=== PATIENT | female | born 2005 | race Caucasian/White ===

== ENCOUNTER 2025-08-24 10:41 | Emergency (ER) | payer OTHER, SELFPAY ==
--- NOTE | ~2025-08-24 | XR_ITS ---
CLINICAL HISTORY: cough 2 view chest x-ray Comparison: None provided Findings: No consolidation or effusion. Normal size heart. No acute fracture. IMPRESSION: 1. No acute findings. This document has been electronically signed by: Xander Hummel MD on 08/24/2025 12:24:14
[2025-08-24 11:08] VITALS: BP 95/58; PULSE 82; RESP 18; TEMP 36.4; O2SAT 98; BMI 32.0
[2025-08-24 11:40] VITALS: BMI 21.7
[2025-08-24 11:43] LABS: MANUAL DIFF FLAG NO
[2025-08-24 11:50] LABS: Hematocrit 39.4 % (37.0-47.0); Hemoglobin 13.4 g/dl (12.0-16.0); Imm Gran Abs Auto 0.04 X10*3/uL (0.00-0.03); Imm Gran Pct Auto 0.4 % (0.0-0.4); Lymphocytes Absolute Auto 1.7 X10*3/uL (1.2-4.9); Mean Corpuscular HGB Conc 34.0 g/dl (31.0-35.0); Mean Corpuscular Hemoglobin 28.3 pg (27.0-33.0); Mean Corpuscular Volume 83.3 fL (80.0-98.0); NRBC Abs Auto 0.000 X10*3/uL (0.0-0.012); NRBC Pct Auto 0.0 /100WBC (0.0-0.2); Platelet Count 243 X10*3/uL (160-400); Red Blood Count 4.73 X10*6/uL (4.20-5.50); White Blood Count 9.6 X10*3/uL (4.8-10.8)
[2025-08-24 12:02] LABS: Alanine Aminotransferase 19 U/L (0-31); Albumin Level 4.2 g/dL (3.5-5.0); Alkaline Phosphatase 44 U/L (39-117); Anion Gap 15 (12-20); Aspartate Amino Transferase 21 U/L (5-31); Blood Urea Nitrogen 14 mg/dL (9-16); Calcium 9.4 mg/dL (8.4-10.2); Carbon Dioxide 23 mmol/L (22-29); Chloride 106 mmol/L (96-108); Creatinine Clr Calc Pharmacy 104.7; Estimated Glomerular Filt Rate > 60; Potassium 4.3 mmol/L (3.3-5.1); Sodium 140 mmol/L (135-145); Total Protein 7.3 g/dL (6.5-8.0)
[2025-08-24 12:26] LABS: IDNOW Serial# 08D9AD1C
[2025-08-24 12:27] LABS: IDNOW Serial# 55D5AD1C; IDNOW Serial# 58CA691E; Influenza B2 Negative (Negative); Strep A Nucleic Acid Negative (Negative)
[2025-08-24 12:28] LABS: COVID-19 Test Negative (Negative)
--- NOTE | 2025-08-24 12:33 | ECG_ITS ---
Test Reason : SYNCOPE Blood Pressure : */* mmHG Vent. Rate : 59 BPM Atrial Rate : 59 BPM P-R Int : 132 ms QRS Dur : 80 ms QT Int : 412 ms P-R-T Axes : 57 68 45 degrees QTcB Int : 407 ms Sinus bradycardia with sinus arrhythmia Otherwise normal ECG No previous ECGs available Referred By: Sara Rodriguez Electronically Signed By: Guillaume Brannon
--- NOTE | 2025-08-24 12:36 | ED_ITS ---
HPI - Seizure General Chief Complaint: Seizure Stated Complaint: passed out at home fever Time Seen by Provider: 08/24/25 11:50 History of Present Illness HPI Narrative: Patient is a 20-year-old female presented today with having subjective fever yesterday some sore throat had hard stool that have a tinge of blood when she wipes. Patient was sitting at the kitchen table when she felt lightheaded. Her vision starts ago. Patient was on the ground. There was question movement of the arms and leg. Subsequently the patient was somewhat pale. Was confused. There was no bowel urinary incontinence. There is no tongue bite. Seizure History: No Place: Home Related Data Allergies Allergy/AdvReac Type Severity Reaction Status Date / Time amoxicillin Allergy Rash Verified 08/24/25 11:13 Review of Systems 2 Review of Systems: Positive subjective fever. Positive coughing. Positive possible seizure versus syncopal episode Yes all other systems are reviewed and are negative PMFSH Past Medical History Attestation statement: The following information was validated with the patient. Social History Social History Smoked in Last 30 Days: No Use of substances other than those prescribed or required for medical reasons: No Advance Directives: No Advance Directives Information Provided: No Patient : No Physical Exam 2 Exam: Exam: Appearance: Alert. Oriented X3. No acute distress. Eyes: Pupils equal, round and reactive to light. ENT: Pharynx normal. Neck: Normal inspection. Neck supple. No lymph nodes noted. No crepitus CVS: Normal heart rate and rhythm. Pulses normal. Normal S1 and S2 Respiratory: No respiratory distress. Breath sounds normal. No Wheezing. No rales Abdomen: Soft and nontender. No rigidity. No distention. good BS x4 Skin: Skin warm and dry. Normal skin color. Normal skin turgor. Extremities: No lower extremity edema. Neurovascular intact to all extremities. No Lacerations. No Rash Neuro: Oriented X 3. No motor deficit. No sensory deficit. Moving all extermities. No slurred speech Vital Signs: Vital Signs: Last Vital Signs Temp 97.5 F 08/24/25 11:08 Pulse 85 08/24/25 13:26 Resp 18 08/24/25 11:08 BP 103/59 L 08/24/25 13:26 Pulse Ox 96 08/24/25 13:26 O2 Del Method Room Air 08/24/25 13:26 BMI result Body Mass Index 21.7 Medications Administered Discontinued Medications Generic Name Dose Route Start Last Admin Trade Name Mariana PRN Reason Stop Dose Admin Sodium Chloride 1,000 mls @ 999 mls/hr 08/24/25 12:45 08/24/25 12:48 Ns IV 08/24/25 13:45 999 mls/hr .Q1H1M FELIBERTO Administration Sodium Chloride 1,000 mls @ 999 mls/hr 08/24/25 13:30 08/24/25 14:00 Ns IV 08/24/25 14:30 999 mls/hr .Q1H1M FELIBERTO Administration Medical Decision Making Medical Decision Making [facility] Narrative: Patient is 20 years old has been having some recent upper respiratory illness. Today had a question syncopal episode versus seizure. Patient's orthostatic showed heart rate went up with standing. IV fluid was started. Electrolytes unremarkable. My interpretation of patient's EKG showed a sinus rhythm heart rate is 60 AL QRS QTC normal no acute ST segment elevation. test negative no related issues. There was a question of patient had a seizure. Family noted patient be shaking when she was out. Lasted for few minutes there was a postictal state but there is no tongue bite there is no bowel urinary incontinence. Patient otherwise well-appearing urine is noninfected given hydration explained to patient the need for close follow-up. Seizure precaution. No driving no activity still put her in danger she has a seizure at that time. She states understanding. Patient is complaining of some blood mixed with stool. She had a bowel movement in the emergency department it was formed stool cover was small amount of blood. We then proceeded to do a rectal exam with nurse Duke present. There was a visible hemorrhoid noted. Patient in no distress. Will discharge patient. Differential Diagnosis Differential Diagnoses: The differential diagnosis associated with the presentation includes Seizure, syncope, dehydration, viral illness Admission/Observation Consideration of admission/observation: Escalation of care including admission/observation considered Lab Data [facility] Lab Attestation statement: I reviewed the patient's lab results. 08/24/25 11:38 08/24/25 11:38 Labs: Lab Results 08/24/25 08/24/25 Range/Units 11:38 12:58 WBC 9.6 (4.8-10.8) X10*3/uL RBC 4.73 (4.20-5.50) X10*6/uL Hgb 13.4 (12.0-16.0) g/dl Hct 39.4 (37.0-47.0) % MCV 83.3 (80.0-98.0) fL MCH 28.3 (27.0-33.0) pg MCHC 34.0 (31.0-35.0) g/dl RDW 12.6 (11.0-16.0) % Plt Count 243 (160-400) X10*3/uL MPV 10.0 (9.4-12.3) fL Immature Gran % (Auto) 0.4 (0.0-0.4) % Neut % (Auto) 73.9 H (45-73) % Lymph % (Auto) 17.3 L (20-40) % [place] % (Auto) 6.5 (2-11) % Eos % (Auto) 1.6 (0-4) % Baso % (Auto) 0.3 (0-2) % Lymph # (Auto) 1.7 (1.2-4.9) X10*3/uL [place] # (Auto) 0.6 (0.1-1.2) X10*3/uL Eos # (Auto) 0.2 (0.0-0.4) X10*3/uL Baso # (Auto) 0.0 (0.0-0.2) X10*3/uL Abs Immat Gran (auto) 0.04 H (0.00-0.03) X10*3/uL Absolute Neuts (auto) 7.1 (2.0-8.3) x10*3/uL Absolute Nucleated RBC 0.000 (0.0-0.012) X10*3/uL Nucleated RBC % (auto) 0.0 (0.0-0.2) /100WBC Sodium 140 (135-145) mmol/L Potassium 4.3 (3.3-5.1) mmol/L Chloride 106 (96-108) mmol/L Carbon Dioxide 23 (22-29) mmol/L Anion Gap 15 (12-20) BUN 14 (9-16) mg/dL Creatinine 0.85 (0.5-1.4) mg/dL Estim Creat Clear Calc 104.7 Estimated GFR > 60 Random Glucose 111 (60-115) mg/dL Calcium 9.4 (8.4-10.2) mg/dL Total Bilirubin 0.5 (0.0-1.0) mg/dL AST 21 (5-31) U/L ALT 19 (0-31) U/L Alkaline Phosphatase 44 (39-117) U/L Total Protein 7.3 (6.5-8.0) g/dL Albumin 4.2 (3.5-5.0) g/dL Urine Color Dark Yellow Urine Appearance Clear Urine pH 6.0 (5.0-9.0) Ur Specific [place] >= 1.030 H (1.005-1.025) Urine Protein 30 (1+) H (Neg-Trace) mg/dL Urine Glucose (UA) Negative (Negative) mg/dL Urine Ketones Negative (Negative) mg/dL Urine Blood Negative (Negative) Urine Nitrite Negative (Negative) Ur Leukocyte Esterase Trace H (Negative) Urine RBC 0-2 (0-2) /HPF Urine WBC 0-5 (0-5) /HPF Ur Squamous Epith Cells 3-5 (0-2) /HPF Urine Bacteria Trace (None Seen) Hyaline Casts 3-5 (0-2) /LPF Granular Casts Present Urine Test NEGATIVE (NEGATIVE) COVID-19 (JORGE) Negative (Negative) COVID-19 Clin Com See Note Influenza Type A (DAVY) Negative (Negative) Influenza Type B (DAVY) Negative (Negative) Influenza A & B Note See Note S. pyogenes GrpA DAVY Negative (Negative) Independent Interpretation I performed an independent interpretation of an: EKG (Sinus heart rate is 60 AL QRS QTC normal no acute ST segment elevation) Social Determinants Patient?s care significantly limited by Social Determinants of Health including: Problems related to primary support group Discharge Plan Discharge Clinical Impression: Seizure, Syncope, Hemorrhoid Patient Disposition: Home, Self-Care Instructions: Syncope (DC), New-Onset Seizure in Adults (ED), Sitz Bath (DC) Additional Instructions: No driving. No swimming . No activities that would put you in danger if you have a seizure that time. Referrals: Gerson Nice MD [Physician, Neurology] - 08/28/25 Print Language: Bulgarian
[2025-08-24 13:08] LABS: Appearance Urine Clear; Glucose Urine UA Negative (Negative); PH 6.0 (5.0-9.0); Specific Gravity - Urine >= 1.030 (1.005-1.025); UMIC TRIGGER UACC YES
[2025-08-24 13:10] LABS: UPreg QC Valid YES
--- OUTSIDE RECORDS SUMMARY | 2025-08-24 13:18 | XMS_ITS | Encounter Summary ---
Author Organization [facility] Address [address] [place] [address] Phone Care Team Providers Care Inbound Ingredient Logistics Specialist Name Role Phone Maisha Arthur MD Primary Care Provider Encounter Details Date Type Department Care Team ([facility] st Contact Info) Description 06/02/2017 Conversion Encounter [facility] - [address] [id number] Social History Tobacco Use Types Packs/Day Years Used Date Smoking Tobacco: Never Comments:Never smoker Comments Unknown Sex and Gender Information Value Date Recorded Sex Assigned at Female 10/12/2024 6:13 PM EST Legal Sex Female 5:24 PM EDT Gender Identity Female 10/12/2024 6:13 PM EST Sexual Orientation Unknown 06/28/2025 2: 53 PM EDT documented as of this encounter Plan of Treatment Not on file documented as of this encounter Visit Diagnoses Not on filedocumented in this encounter Care Teams Inbound Ingredient Logistics Specialist Relationship Specialty Start Date End Date Maisha Arthur MD [address] [place] [address] PCP - General Pediatrics 01/17/24 07/01/25 documented as of this encounter
--- OUTSIDE RECORDS SUMMARY | 2025-08-24 13:18 | XMS_ITS ---
Author Organization Unknown ENCOUNTERS Encounter Performer Location Date Diagnosis Diagnosis Status Emergency [address] [address] [id number] [facility] *Note: Encounters from your own facility or health system may be excluded. Allergies, Adverse Reactions, Alerts Allergen Type Severity Identification Date Medications Name Date Quantity Days Supplied GPI Number
--- OUTSIDE RECORDS SUMMARY | 2025-08-24 13:18 | XMS_ITS | Clinical Summary ---
Author Organization [facility] Address [address] [place] [phone] Phone Care Team Providers Care Dulite Machine Bluer Name Role Phone Unavailable Primary Care Provider Unavailabl e Allergies Active Allergy Reactions Criticality Noted Date Comments Amoxicillin Hives Penicillin G 03/12/2022 Medications desogestrel-ethiny l estradiol (Apri) 0.15-30 MG-MCG per tabletIndications: Oral contraceptive use Take 1 tablet by mouth once daily. 84 tablet 4 5 06/28/20 26 Active Active Problems Problem Noted Date Diagnosed Date COVID-19 vaccination declined 03/28/2023 Influenza vaccination declined 03/28/2023 Oral contraceptive use 03/26/2021 Overview (03/26/2024): Doing well on Apri (desogestrel-30 EE) since 05/2021- refilled x 12 mo supply at [facility] Assessment & Plan (06/28/2025 3:00 PM EDT): Content with no SE concerns on Apri (desogestrel-30 EE) since 2020- refilled x 12 mo supply today. Establishing with new adult PCP on 08/07/25 Assessment & Plan (03/28/2024 2:28 PM EDT): Content with no SE concerns on Apri (desogestrel-30 EE)- refilled x 12 mo supply today Assessment & Plan (03/28/2023 1:43 PM EDT): Content with no SE concerns on Apri (desogestrel-30 EE)- refilled x 12 mo supply today Assessment & Plan (05/16/2022 3:21 PM EDT): Screen for GC and if negative and BTB symptoms not improved in the next 1-2 cycles would consider f/up with PCP to discuss alternative OCP, increasing to a 35 mcg of estrogen pill such as Sprintec. Assessment & Plan (03/26/2021 10:18 AM EDT): Having some irregular periods over the last few months but has been on the same one for a couple of years; so likely stress related; so will monitor over the next 2 months during summer when stress should settle down, but if not improving, will call and will switch to a different bcp Chronic seasonal allergic rhinitis due to pollen 03/21/2018 Assessment & Plan (06/28/2025 3:03 PM EDT): Minimal symptoms this season- Cetirizine 10 mg QHS/PRN Assessment & Plan (03/28/2023 1:43 PM EDT): Minimal symptoms this season- Cetirizine 10 mg QHS/PRN Assessment & Plan (03/26/2021 10:19 AM EDT): Still uses zyrtec as needed Assessment & Plan (04/04/2020 2:36 PM EDT): Increase in symptoms, possibly due to viral illness vs allergies. Trial of Flonase 2 spray each nostril once daily. Trial of Neti pot. Assessment & Plan (03/20/2020 9:20 AM EDT): Uses zyrtec as needed Assessment & Plan (03/29/2019 4:04 PM EDT): Still taking zyrtec for allergies as needed Assessment & Plan (03/21/2018 3:13 PM EDT): Uses zyrtec Resolved Problems Problem Noted Date Diagnosed Date Resolved Date History of COVID-19 08/09/2022 03/28/20 23 Overview (08/09/2022): 05/24/2022 Acne vulgaris 03/21/2018 06/28/2025 Overview (03/28/2024): Mild, using Tretinoin 0.05% QHS with good effect Assessment & Plan (03/28/2024 2:29 PM EDT): Mild acne, Tretinoin refilled today for 12mo supply , never seen by Derm. Assessment & Plan (03/28/2023 1:42 PM EDT): Mild acne, Tretinoin refilled today for 12mo supply but referral to Derm at pt request. Suggest medical spa likely to be faster and ? cheaper that derm consult for resurfacing treatments- pt to research with her [employer] insurance. Assessment & Plan (05/16/2022 3:18 PM EDT): Well controlled with OCP and topical retinoid- no changes desired. Assessment & Plan (03/26/2021 10:20 AM EDT): Well controlled with bcps Assessment & Plan (03/20/2020 9:43 AM EDT): Doing well on bcp's; had breakthrough this month/but not typically having any issues; no sign of infection or other problem; so will just stay the course and she'll let me know if there's a further problem Assessment & Plan (03/29/2019 4:09 PM EDT): S/p treatment with minocycline (finishing out last tapered dose this month) but still with acne concerns; will increase retin a to 0.05 % cream--tapering up on that while still using lower dose; but mom and patient ok and would like to start with ocps for treatment; discussed use and side effects; recheck in 2 mos Assessment & Plan (03/21/2018 3:19 PM EDT): Doing well on current medication/not quite controlled but doing better; so continue same minocycline 100 mg daily for now (1 more month) and increase tretinoin cream to 0.05% (alternate with 0.025% in the beginning and work up to 0.05% every night) Then mom to call me in a month with an update If doing okay/better, will then go to minocycline every other day for a few weeks, then discontinue altogether Hopefully just continuing on tretinoin 0.05 % every night and either lower dose benzoyl peroxide (2.5%--higher dose didn't agree with her) or could try adapalene Continue with cleansers and moisturizers 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 Assessment & Plan (03/21/2018 3:19 PM EDT): Seen over a year ago and cleared by sports medicine Encounters Date Type Department Care Team Description 07/01/2025 Telephone [facility] [address] [address] Maisha Arthur MD records request 06/28/2025 2:10 PM EDT Office Visit [facility] [address] [address] Maisha Arthur MD Well adult exam (Primary Dx); Need for vaccination; Dietary counseling and surveillance; Exercise counseling; Oral contraceptive use; Screening for chlamydial disease; Chronic seasonal allergic rhinitis due to pollen from Last 3 Months Immunizations Immunization Administration Dates Next Due DTaP 5 04/12/2007, 4,2003,08/12,2003 H1N1 11/13/2009,08/14/2009 HPV Vaccine 9 Valent 04/22/2016,08/27/2015,04/14 Hep A, ped/adol 04/14/2015,03/19/2011 Hep B, ped/adol 01/06/2004,2003,2003 Hib (HbOC) 06/29/2004 Hib (PRP-T) 2003,2003,2003 IPV 04/12/2007, 4,2003,05/27 Influenza, injectable, quadrivalent 08/04/2016 Influenza, injectable, quadr ivalent, preservative free 06/21/2020,07/09/2019,08/30/2018,08/22 Influenza, injectable, trivalent 10/02/2004 Influenza, injectable, triva lent, preservative free 06/28/2025 Influenza, intranasal, quadrivalent 08/27/2015,1 ,08/13/2013 Influenza, intranasal, trivalent 07/05/2012,07/18,08/20/2010 MMR 04/24/2004 MMRV 04/12/2007 Meningococcal B Trumenba 03/28/2023,05/12/2022 Meningococcal Conj (Menactra) MCV4P 03/29/2019,0 04/12/2014 Pneumococcal Conjugate 10/02/2004,2002,2003,05/27 Tdap 06/28/2025,04/12/2014 Varicella 04/24/2004 Family History Medical History Relation Name Comments No Known Problems Brother Amador Allergic rhinitis Father Bjorn Allergic rhinitis Mother Jeanna Relation Name Status Comments Brother Amador Alive Brother: Alive and well Father Bjorn Alive Father: Allergi c rhinitis Maternal Grandfather Materna michelle grandfather: Coronary artery disease Maternal Grandmother Materna l grandmother: Hypertension Mother Jeanna Alive Mother: Allergi c rhinitis Other No family histo ry of Hyperlipidemia, Family history of Sudden /AR under age 55, No family history of *Sudden /AR under 55, Family history of *CVA/Stroke, Family history of *Heart Disease, Family history of *Dental caries Paternal Grandfather Brigido l grandfather: Hypertension, Coronary artery disease Paternal Grandmother Brigido l grandmother: Diabetes mellitus Social History Tobacco Use Types Packs/Day Years Used Date Smoking Tobacco: Never Smokeless Tobacco: Never Tobacco Cessation:Counseling Given: Not Answered Alcohol Use Standard Drinks/Week Comments Yes 0 (1 standard drink = 0.6 oz pure alcohol) 1-2 drinks on weekends socially, but not every weekend. Hunger/Food Answer Date Recorded In the last 12 months, did y ou or your family ever eat less than you felt you should because there wasn't enough money for food? No 06/28/2025 Stable Housing Answer Date Recorded Are you worried that in the next 2 months you may not have stable housing? No 06/28/2025 Transportation Concerns Answer Date Rec orded In the last 12 months, have you or your family ever had to go without healthcare because you didn't have a way to get there? No 06/28/2025 Hazards in Home Answer Date Recorded Think about the place you li ve. Do you have problems with any of the following? Pests (mice or roaches), mold, no/not working smoke detectors, water leaks, no window guards. No 2024 Financing Utilities Answer Date Recorde d In the last 12 months, has t he electric, gas, oil, or water company threatened to shut off your services in your home? No 06/28/2025 Safety at Home Answer Date Recorded Are you or your family worried about feeling saf e in your home? No 06/28/2025 Outside Support Answer Date Recorded Do you feel that you need mo re support from other people or programs to help you care for yourself or your family? No 06/28/2025 Understanding Health Concerns Answer Da te Recorded Do you need help understandi ng your or your child's healthcare needs (diagnosis, medications, plan, etc.)? No 06/28/2025 Financing Health Concerns Answer Date R ecorded In the last 12 months, was t here a time when your child needed to see a doctor or get medications or supplies but could not because of cost? No 06/28/2025 Missing School or Work Answer Date Peewee rded Did you or your child miss s chool or work because of a health problem that could have been avoided? No 06/28/2025 Child Education Answer Date Recorded Do you have concerns about y our/your child's learning or behavior in school, preschool, or daycare? No 06/28/2025 Comments No Sex and Gender Information Value Date Recorded Sex Assigned at Female 10/12/2024 6:13 PM EST Legal Sex Female 5:24 PM EDT Gender Identity Female 10/12/2024 6:13 PM EST Sexual Orientation Unknown 06/28/2025 2: 53 PM EDT Last Filed Vital Signs Vital Sign Reading Time Taken Comments Blood Pressure 116/73 06/28/2025 2:11 PM EDT Pulse 90 06/28/2025 2:11 PM EDT Temperature 36.6 C (97.8 F) 01/20/2024 2:00 PM EDT Respiratory Rate 18 03/12/2022 11:18 AM EDT Oxygen Saturation 98% 01/20/2024 2:00 PM EDT Inhaled Oxygen Concentration - - Weight 67 kg (147 lb 9.6 oz) 06/28/2025 2:11 PM EDT Height 170.9 cm (5' 7.3 ) 06/28/2025 2:11 PM EDT Body Mass Index 22.91 06/28/2025 2:11 PM EDT Plan of Treatment Health Maintenance Due Date Last Done Comments COVID-19 Vaccine (4 - 2024- 6 season) 2025 10/15/2021, 04/13/2021, 03/23/2021 DTaP,Tdap,and Td Vaccines (8 - Td or Tdap) 06/28/2035 06/28/2025, 04/12/2014, 04/12/2007, Additional history exists Hepatitis B Vaccines Completed 01/06/2004, 2003, 2003 HIB Vaccines Completed 06/29/2004, 09/16, 2003, Additional history exists Pneumococcal Vaccine Completed 10/02/2004, 2003, 2003, Additional history exists IPV Vaccines Completed 04/12/2007, 12/16, 2003, Additional history exists MMR Vaccines Completed 04/12/2007, 04/24/2004 Varicella Vaccines Completed 04/12/2007, 04/24/2004 Hepatitis A Vaccines Completed 04/14/2015, 03/19/20 11 HPV Vaccines Completed 04/22/2016, 08/17, 04/14/2015 Meningococcal Vaccine Completed 03/29/2019, 014 Men B Vaccine Completed 03/28/2023, 05/12/2022 Influenza Vaccines Completed 06/28/2025, 0 06/21/2020, 07/09/2019, Additional history exists Procedures * Due to [facility] law, this organization might not be sharing sensitive test results. Procedure Name Priority Date/Time Associated Diagnosis Comments BRIEF BEHAVIORAL ASSESSMENT - NORMAL(PSC,PHQ9,VAND ERBILT,ETC) Routine 06/28/2025 3:01 PM EDT Well adult exam CHLAMYDIA AND GONORRHEA, AMPLIFIED Routine 06/28/2025 2:24 PM EDT Screening for chlamydial disease from Last 3 Months Results * Due to [place] law, this organization might not be sharing sensitive test results. * Chlamydia and Gonorrhoea, Amplified (06/28/2025 2:24 PM EDT) Chlamydia trachomatis RNA, TMA Not Detected Not Detected 07/01/2025 10:50 AM EDT [facility] Neisseria gonorrhoeae, JORGE Not Detected Not Detected 07/01/2025 10:50 AM EDT [facility] Specimen Type VAGINAL 07/01/2025 10:50 AM EDT [facility] Swab (Vagina) 06/28/2025 2:2 4 PM EDT 06/28/2025 6:42 PM EDT Maisha Arthur MD LAB MICROBIOLOGY - GENERAL ANAHEIMDomenica [facility] Final Result Performing Organization Address City/State/[facility] Co de Phone Number [facility] from Last 3 Months Insurance AETNA AETNA
--- OUTSIDE RECORDS SUMMARY | 2025-08-24 13:18 | XMS_ITS | Encounter Summary ---
Author Organization [facility] Address [address] [place] [phone] Phone Care Team Providers Care Head Knitting Machine Fixer Name Role Phone Maisha Arthur MD Primary Care Provider [phone] Reason for Visit * Reason Comments Med Refill Encounter Details Date Type Department Care Team ([facility] st Contact Info) Description 04/25/2019 Refill [facility] - [address] [address] Karla Wang MD [address] [place] [address] [place] [address] Encounter for routine child health examination without abnormal findings Social History Tobacco Use Types Packs/Day Years Used Date Smoking Tobacco: Never Smokeless Tobacco: Never Comments:Never smoker Alcohol Use Standard Drinks/Week Comments No 0 (1 standard drink = 0.6 oz pur e alcohol) Hunger/Food Answer Date Recorded No 03/29/2019 Stable Housing Answer Date Recorded 0 03/29/2019 Transportation Concerns Answer Date Rec orded No 03/29/2019 Hazards in Home Answer Date Recorded No 03/29/2019 Financing Utilities Answer Date Recorde d No 03/29/2019 Safety at Home Answer Date Recorded No 03/29/2019 Outside Support Answer Date Recorded No 03/29/2019 Understanding Health Concerns Answer Da te Recorded No 03/29/2019 Financing Health Concerns Answer Date R ecorded No 03/29/2019 Missing School or Work Answer Date Peewee rded No 03/29/2019 Comments No Sex and Gender Information Value Date Recorded Sex Assigned at Female 10/12/2024 6:13 PM EST Legal Sex Female 5:24 PM EDT Gender Identity Female 10/12/2024 6:13 PM EST Sexual Orientation Unknown 06/28/2025 2: 53 PM EDT documented as of this encounter Miscellaneous Notes * Telephone Encounter - Breann Iraheta LPN - 04/25/2019 4:21 PM EDT Pharm fax refill request OCP. EH documented in this encounter Plan of Treatment Not on file documented as of this encounter Visit Diagnoses Diagnosis Encounter for routine child health examination without abnormal findings documented in this encounter Care Teams Head Knitting Machine Fixer Relationship Specialty Start Date End Date Maisha Arthur MD [address] [facility] [address] [place] [address] PCP - General Pediatrics 01/17/24 07/01/25 documented as of this encounter
--- OUTSIDE RECORDS SUMMARY | 2025-08-24 13:18 | XMS_ITS | Encounter Summary ---
Author Organization [facility] Address [address] [place], [place] [id number] Phone Care Team Providers Care Radiation Engineer Name Role Phone Maisha Arthur MD Primary Care Provider [phone] Reason for Visit * Reason Comments Med Refill Encounter Details Date Type Department Care Team (Late st Contact Info) Description 03/08/2019 Refill [facility] [place] [address] [place] [address] Karla Wang MD [address] [place] [address] Acne vulgaris Social History Tobacco Use Types Packs/Day Years Used Date Smoking Tobacco: Never Smokeless Tobacco: Never Comments:Never smoker Alcohol Use Standard Drinks/Week Comments No 0 (1 standard drink = 0.6 oz pur e alcohol) Comments No Sex and Gender Information Value Date Recorded Sex Assigned at Female 10/12/2024 6:13 PM EST Legal Sex Female 5:24 PM EDT Gender Identity Female 10/12/2024 6:13 PM EST Sexual Orientation Unknown 06/28/2025 2: 53 PM EDT documented as of this encounter Miscellaneous Notes * Telephone Encounter - Karla Wang MD - 03/08/2019 12:52 PM EDT Was only supposed to be a 2 month treatment * Telephone Encounter - Ching Valentin LPN - 03/08/2019 11:58 AM EDT Refill request for minocycline. Last PE 03/21/18, has pending PE appt on 03/29/19/SWATI documented in this encounter Plan of Treatment Not on file documented as of this encounter Visit Diagnoses Diagnosis Acne vulgaris Other acne documented in this encounter Care Teams Radiation Engineer Relationship Specialty Start Date End Date Maisha Arthur MD 193 [facility] [place] [address] [place] [address] PCP - General Pediatrics 01/17/24 07/01/25 documented as of this encounter
--- OUTSIDE RECORDS SUMMARY | 2025-08-24 13:18 | XMS_ITS | Encounter Summary ---
Author Organization [facility] Address [address] [place] [address] Phone Care Team Providers Care Diver Pumper Name Role Phone Maisha Arthur MD Primary Care Provider [phone] Encounter Details Date Type Department Care Team (Late st Contact Info) Description 02/14/2017 Documentation [facility] [place] Family Medicine [address] [place] [address] Family Medicine, Physician [address] [place] [address] Social History Tobacco Use Types Packs/Day Years Used Date Smoking Tobacco: Never Assessed Comments Unknown Sex and Gender Information Value [...] on filedocumented in this encounter Care Teams Diver Pumper Relationship Specialty Start Date End Date Maisha Arthur MD 193 [facility] [address] [place] [address] PCP - General Pediatrics 01/17/24 07/01/25 documented as of this encounter
--- OUTSIDE RECORDS SUMMARY | 2025-08-24 13:18 | XMS_ITS | Clinical Summary ---
Author Organization [facility] Address [address] [place] [address] Phone Care Team Providers Care Training Program Developer Name Role Phone Karla Wang MD Primary Care Provider [phone] Encounters Date Type Department Care Team Description 06/28/2025 6:23 PM EDT - 06/28/2025 11:59 PM EDT Hospital Encounter [facility] [address] [place] [address] Maisha Arthur MD Discharge Disposition: Home or Self Care from Last 3 Months Social History Tobacco Use Types Packs/Day Years Used Date Smoking Tobacco: Never Assessed Education Answer Date Recorded Are you interested in more education? Not on kayden e 02/11/2023 Are you concerned about learning? Not on file 02/11/2023 No 02/11/2023 No 02/11/2023 Digital Access Answer Date Recorded No 03/11/2023 No 03/11/2023 No 03/11/2023 Reliable internet access at home? Not on file 03/11/2023 Device with a working camera? Not on file Comments Unknown Sex and Gender Information Value Date Recorded Sex Assigned at Not on file Legal Sex Female 8:44 PM EDT Gender Identity Not on file Sexual Orientation Not on file Plan of Treatment Health Maintenance Due Date Last Done Comments DEPRESSION SCREENING 2015 SMOKING Hx and SMOKELESS TOBACCO SCREENING 2016 MENINGOCOCCAL VACCINES (B) (1 of 2 - Standard) 2019 HEPATITIS C SCREENING 2021 HIV ONE-TIME SCREENING (18-65 YEARS) 2021 PAP SMEAR 2024 Adult Td,Tdap Booster 04/12/2024 04/12/2014 INFLUENZA VACCINE (#1) 2025 , 07/09/2019, 08/30/2018, Additional history exists COVID-19 VACCINE ( season) 2025 04/13/2021, 03/23/2021 CHLAMYDIA SCREENING 06/28/2026 06/28/2025 HIB VACCINES Completed 06/29/2004, 09/16, 2003, Additional history exists PNEUMOCOCCAL VACCINES (0-49 years) Aged Out 10/02/2004, 2003, 2003, Additional history exists No longer eligible based on patient's age to complete this topic HEPATITIS A VACCINES Completed 04/14/2015, 03/19/20 11 HPV VACCINES Completed 04/22/2016, 08/17, 04/14/2015 MENINGOCOCCAL VACCINES (ACWY) Completed 03/29/2019, 04/12/2014 Medical Devices Not on file Procedures Procedure Name Priority Date/Time Associated Diagnosis Comments CHLAMYDIA TRACHOMATIS AND NEISSERIA GONORRHOEAE NUCLEIC ACID DETECTION Routine 06/28/2025 2:24 PM EDT Encounter for screening for other infectious and parasitic diseases from Last 3 Months Results * Chlamydia trachomatis and Neisseria gonorrhoeae Nucleic Acid Amplification (06/28/2025 2:24 PM EDT) CHLAMYDIA TRACHOMATIS Not Detected Not Detected [facility] NEISERIA GONORRHOEAE Not Detected Not Detected [facility] SPECIMEN TYPE VAGINAL [facility] 06/28/2025 2:24 PM EDT 06/28/2025 6:42 PM EDT us Maisha Arthur MD LAB GENERAL ORDERABLES Adilene martinez Result [facility] [address] [place] [address] from Last 3 Months Insurance [employer] [facility] POS EPO [employer] [facility] POS EPO * Guarantor: TRISHA JOAQUIN Account Type Relation to Patient Date of Phone Billing Address Personal/Family Mother NALLELY [employer] [facility] POS EPO * Guarantor: TRISHA JOAQUIN Account Type Relation to Patient Date of Phone Billing Address Personal/[place] [address] [facility] POS EPO [facility] POS EPO * Guarantor: TRISHA JOAQUIN Account Type Relation to Patient Date of Phone Billing Address Personal/[place] [address] [facility] POS EPO * Guarantor: TRISHA JOAQUIN Account Type Relation to Patient Date of Phone Billing Address Personal/[place] [address] [facility] POS EPO * Guarantor: TRISHA JOAQUIN Account Type Relation to Patient Date of Phone Billing Address Personal/Family Mother NALLELY [employer] [facility] POS EPO * Guarantor: CALINTRISHA Harden Account Type Relation to Patient Date of Phone Billing Address Personal/[place] [phone] [facility] POS EPO Care Teams Training Program Developer Relationship Specialty Start Date End Date Karla Wang MD [address] [place] [address] [place] [address] PCP - General Adolescent Medicine 06/27/19 Additional Source Comments The information contained in this document represents components of the legal health record. It is not the complete legal health record.[facility]
--- OUTSIDE RECORDS SUMMARY | 2025-08-24 13:18 | XMS_ITS | Encounter Summary ---
Author Organization [facility] Address [address] [place], [place] [id number] Phone Care Team Providers Care Head Cleaning Porter Name Role Phone Maisha Arthur MD Primary Care Provider [phone] Reason for Visit * Reason Comments Med Refill Encounter Details Date Type Department Care Team (Late st Contact Info) Description 03/20/2019 Refill [facility] [place] [address] [place] [address] Karla Wang MD [address] [place] [address] Acne vulgaris Social History Tobacco Use Types [...] encounter Miscellaneous Notes * Telephone Encounter - Daniel Smith LPN - 03/20/2019 2:42 PM EDT Per doctor Kathleen's note on 03/08 this was only a 2 month treatment. documented in this encounter Plan of Treatment Not on file documented as of this encounter Visit Diagnoses Diagnosis Acne vulgaris Other acne documented in this encounter Care Teams Head Cleaning Porter Relationship Specialty Start Date End Date Maisha Arthur MD [address] [address] PCP - General Pediatrics 01/17/24 07/01/25 documented as of this encounter
--- OUTSIDE RECORDS SUMMARY | 2025-08-24 13:18 | XMS_ITS | Encounter Summary ---
Author Organization [facility] Address [address] [place] [address] Phone Care Team Providers Care Plater Hot Dip Name Role Phone Maisha Arthur MD Primary Care Provider [phone] Encounter Details Date Type Department Care Team (Late st Contact Info) Description 02/14/2017 Documentation [facility] Family Medicine [address] [place] [address] Family Medicine, Physician [address] [place] [address] Social History Tobacco Use Types Packs/Day Years [...] on filedocumented in this encounter Care Teams Plater Hot Dip Relationship Specialty Start Date End Date Maisha Arthur MD 193 [facility] [address] [place] [address] PCP - General Pediatrics 01/17/24 07/01/25 documented as of this encounter
--- OUTSIDE RECORDS SUMMARY | 2025-08-24 13:18 | XMS_ITS | Encounter Summary ---
Author Organization [facility] Address [address] [place] [address] Phone Care Team Providers Care Communications Maintainer Name Role Phone Karla Wang MD Primary Care Provider [phone] Reason for Referral * Physical Therapy (Routine) - Closed Specialty Diagnoses / Procedures Referred By Anna Marie t Referred To Contact Physical Therapy Diagnoses Encounter for rehabilitation Les Massey MD Phone: tel: fax: [address] [address] Phone: tel: Referral ID Status Reason Start Date Expiration Date Visits Re quested Visits Authorized [id number] Closed 06/28/2019 10/16/2019 20 20 Encounter Details Date Type Department Care Team (Latest Contact Info) Description 06/28/2019 Transcribe Orders [facility] [address] [place] [address] Karla Wang MD [address] [place] [id number] Encounter for rehabilitation (Primary Dx) Social History Tobacco Use Types Packs/Day Years Used Date Smoking Tobacco: Never Assessed Comments Unknown Sex and Gender Information Value Date Recorded Sex Assigned at Not on file Legal Sex Female 8:44 PM EDT Gender Identity Not on file Sexual Orientation Not on file documented as of this encounter Plan of Treatment Not on file documented as of this encounter Procedures Procedure Name Priority Date/Time Associated Diagnosis Comments AMB REFERRAL TO [facility] PHYSICAL THERAPY Routine 07/25/2019 10:30 AM EDT Encounter for rehabilitation documented in this encounter Results * Ambulatory referral to [facility] Physical Therapy (07/25/2019 10:30 AM EDT) Les Massey MD AMB [facility] REFERRALS Final Result documented in this encounter Visit Diagnoses Diagnosis Encounter for rehabilitation- Primary documented in this encounter Care Teams Communications Maintainer Relationship Specialty Start Date End Date Karla Wang MD [address] [place] [address] [place] [address] PCP - General Adolescent Medicine 06/27/19 documented as of this encounter Additional Source Comments The information contained in this document represents components of the legal health record. It is not the complete legal health record.[facility]
[2025-08-24 13:25] VITALS: BP 99/48; PULSE 59
[2025-08-24 13:26] VITALS: BP 102/59; BP 103/59; PULSE 66; PULSE 85; O2SAT 96
[2025-08-24 15:13] VITALS: BP 103/59; PULSE 85; RESP 16; TEMP -17.7; TEMP 0; O2SAT 96
--- NOTE | 2025-08-27 06:58 | PC.NURSE ---
Late entry: Pt received a total of 2L IVF during ED visit on 08/24/25. MAR updated at this time to reflect.
== END 2025-08-24 15:47 | disposition home or self-care (01) ==
PROVIDERS: Emergency Provider Emergency Medicine Emergency Medical Services; PCP Nurse Practitioner Primary Care
DX: R55 Syncope and collapse (principal); R56.9 Unspecified convulsions; K64.9 Unspecified hemorrhoids; Z88.0 Allergy status to penicillin
CPT/HCPCS: 71046; 80053; 81001; 81025; 85025; 87502; 87635; 87651; 93005; 96360; 96361; 99285

== ENCOUNTER → 2025-08-24 11:18 | Outpatient (BNV) | payer OTHER, SELFPAY | PROVIDERS: Emergency Provider Emergency Medicine Emergency Medical Services; PCP Pediatrics; Visit Provider Radiology Diagnostic Radiology | DX: R05.9 Cough, unspecified (principal) | CPT/HCPCS: 71046 ==

== ENCOUNTER → 2025-08-24 12:33 | Outpatient (BNV) | payer OTHER, SELFPAY | PROVIDERS: Emergency Provider Emergency Medicine Emergency Medical Services; PCP Nurse Practitioner Primary Care; Visit Provider Internal Medicine Cardiovascular Disease | DX: I49.9 Cardiac arrhythmia, unspecified (principal); R00.1 Bradycardia, unspecified | CPT/HCPCS: 93010 ==

== ENCOUNTER 2025-09-04 17:37 | Emergency (ER) | payer OTHER, SELFPAY ==
--- NOTE | ~2025-09-04 | CT_ITS ---
CLINICAL HISTORY: Dizziness; Near Syncope CT head without contrast Comparison: None provided Findings: No intra-axial mass, midline shift, hydrocephalus, or acute hemorrhage. No significant atrophy-like change or white matter disease. There is no sinus or mastoid fluid. The orbits are within normal limits. There is no acute fracture. IMPRESSION: 1. No acute intracranial findings. This document has been electronically signed by: Dahiana Flores MD on 09/04/2025 23:42:49
[2025-09-04 17:49] VITALS: BP 136/74; PULSE 90; RESP 18; TEMP 36.4; O2SAT 95; BMI 21.9
--- NOTE | 2025-09-04 17:50 | ED.DIZZY ---
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 Work-up was reassuring except for a bleeding hemorrhoid. At that time she was instructed to follow up with Neurology, but no appointment has occurred due to referral issues; earliest neurology appointment available is reportedly 11/09. The patient presents to the ED today for evaluation of an episode of near syncope that began earlier today while standing and teaching in front of her class. She developed sudden dizziness, light-headedness, and a partial tunneling of vision. She specifically attempted to drink water to alleviate her symptoms, but this did not help. She went to the school nurse?s office for approximately one hour, noting intermittent recurrence of dizziness/light-headedness and nausea. She did not lose consciousness throughout the course of symptoms. Patient's mother picked her up, patient reports symptoms slightly improved during the car ride home but recurred immediately upon arrival home, with associated subjective chills and a sinking feeling in her chest. She denies associated headache, chest pain, focal weakness, numbness, speech difficulty, gait disturbance, or visual loss. LMP was last week; flow was heavier than usual but otherwise typical. No recurrent rectal bleeding since visit 2 weeks ago. Only medication is long-term oral contraceptive; no recent changes. Related Data Allergies Allergy/AdvReac Type Severity Reaction Status Date / Time amoxicillin Allergy Rash Verified 09/04/25 17:55 Review of Systems Review of Systems: Yes all other systems are reviewed and are negative PMFSH Social History Social History Advance Directives: No Advance Directives Information Provided: No Patient : No Physical Exam Vital Signs: Vital Signs: Last Vital Signs Temp 98.1 F 09/04/25 22:43 Pulse 74 09/04/25 22:43 Resp 18 09/04/25 22:43 BP 113/74 09/04/25 22:43 Pulse Ox 99 09/04/25 22:43 O2 Del Method Room Air 09/04/25 22:43 BMI result Body Mass Index 21.9 CONSTITUTIONAL: The patient appears non-toxic, well nourished and in no acute distress. Vital signs as documented. HEAD: Atraumatic, normocephalic. EYES: EOMs grossly intact, pupils equal, conjunctiva clear, no exudate. ENT: Nares patent, no discharge. Airway patent, no audible stridor, visible mucosa is pink and moist without noted lesions. NECK: Trachea is midline, no obvious masses or gross abnormalities. CHEST: Symmetric movement, normal appearance. LUNGS: LS present and CTAB, no w/r/r. Non-labored work of breathing. CARDIAC: Regular Rhythm, S1/S2 appreciated, no murmurs, rubs or gallops. ABDOMEN: Abdomen soft and non-tender x4 quadrants, no palpable masses or organomegaly. : Deferred. EXTREMITIES: Normal tone, moves all extremities spontaneously without reported pain. No obvious acute injury or deformity noted. NEURO: Comprehensive neuro exam performed. Cognition intact (oriented to person, place, year, president). Cranial nerves II?XII grossly intact. Motor strength 5/5 throughout, sensation intact and symmetric, coordination normal ([id number], rapid alternating movements, [id number]). Balance tested with eyes closed and gentle perturbation; no dizziness provoked. No focal deficits noted. PSYCH: normal affect, appropriate eye contact, fluid speech, with appropriate response to questioning. No reported suicidality or homicidality. SKIN: Warm, dry, color appropriate, normal turgor. No rashes noted. Course Course Course Narrative: This is a Rapid Medical Exam performed in triage by Teodora Cabrera PA-C. Full HPI, ROS and PE to be performed by primary ED provider. 20 yo F presenting to the ED c/o lightheadedness with intermittent pre-syncopal episodes x1 week - worse today while at work teaching. denies passing out. denies CP/SOB. Was recently see & tx in our ED for similar. 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 Work-up was reassuring except for a bleeding hemorrhoid. At that time she was instructed to follow up with Neurology, but no appointment has occurred due to referral issues; earliest neurology appointment available is reportedly 11/09. The patient presents to the ED today for evaluation of an episode of near syncope that began earlier today while standing and teaching in front of her class. She developed sudden dizziness, light-headedness, and a partial tunneling of vision. She specifically attempted to drink water to alleviate her symptoms, but this did not help. She went to the school nurse?s office for approximately one hour, noting intermittent recurrence of dizziness/light-headedness and nausea. She did not lose consciousness throughout the course of symptoms. Patient's mother picked her up, patient reports symptoms slightly improved during the car ride home but recurred immediately upon arrival home, with associated subjective chills and a sinking feeling in her chest. She denies associated headache, chest pain, focal weakness, numbness, speech difficulty, gait disturbance, or visual loss. LMP was last week; flow was heavier than usual but otherwise typical. No recurrent rectal bleeding since visit 2 weeks ago. Only medication is long-term oral contraceptive; no recent changes. On exam patient has no focal findings, reassuring neurologic exam, otherwise unremarkable. No murmur. Laboratory evaluation is reassuring, no leukocytosis, anemia, electrolyte abnormality, or BETY, LFTs are unremarkable, normal blood sugar, test is negative, viral swabs are negative for COVID, influenza, and RSV. The patient's initial EKG shows a prolonged QTC compared to previous with new inferior and anterior T-wave inversions without associated ST-elevation. Troponin is negative. We will repeat EKG to ensure no worsening QTC or ischemia, we will add on TSH as this was not obtained during previous visit. The risks benefits of CT imaging was discussed with the patient, based on the patient's intermittent symptoms, reassuring neuro exam, and lack of headache there is no indication for CT imaging and likelihood of actionable CT findings is extremely low, however patient and patient's mother are adamantly requesting CT imaging for reassurance that there is no dangerous pathology causing the patient's symptoms. Seeing as this is the patient's 2nd visit in 2 weeks for neurologic symptoms, we will obtain CT head. Pending unremarkable repeat EKG, TSH, and CT imaging, the patient will be discharged with instructions for adequate hydration and outpatient follow up. 10:06 PM 09/04/2025 (Lawrence WHITE): The patient's repeat EKG shows improved rate, improved QTC, and resolution of previously noted T-wave inversions. 12:08 AM 09/05/2025 (Lawrence WHITE): The patient's thyroid testing is normal, CT head has resulted and shows no acute intracranial pathology. The patient remains hemodynamically stable, patient will be discharged to follow up with PCP and Neurology. Admission/Observation Consideration of admission/observation: Escalation of care including admission/observation considered Lab Data MDM Lab Attestation statement: I reviewed the patient's lab results. 09/04/25 18:08 09/04/25 18:08 Labs: Lab Results 09/04/25 09/04/25 Range/Units 18:08 21:57 WBC 7.5 (4.8-10.8) X10*3/uL RBC 4.85 (4.20-5.50) X10*6/uL Hgb 13.9 (12.0-16.0) g/dl Hct 39.8 (37.0-47.0) % MCV 82.1 (80.0-98.0) fL MCH 28.7 (27.0-33.0) pg MCHC 34.9 (31.0-35.0) g/dl RDW 12.0 (11.0-16.0) % Plt Count 339 D (160-400) X10*3/uL MPV 9.4 (9.4-12.3) fL Immature Gran % (Auto) 0.1 (0.0-0.4) % Neut % (Auto) 51.3 (45-73) % Lymph % (Auto) 40.2 H (20-40) % [place] % (Auto) 6.3 (2-11) % Eos % (Auto) 1.6 (0-4) % Baso % (Auto) 0.5 (0-2) % Lymph # (Auto) 3.0 (1.2-4.9) X10*3/uL [place] # (Auto) 0.5 (0.1-1.2) X10*3/uL Eos # (Auto) 0.1 (0.0-0.4) X10*3/uL Baso # (Auto) 0.0 (0.0-0.2) X10*3/uL Abs Immat Gran (auto) 0.01 (0.00-0.03) X10*3/uL Absolute Neuts (auto) 3.8 (2.0-8.3) x10*3/uL Absolute Nucleated RBC 0.000 (0.0-0.012) X10*3/uL Nucleated RBC % (auto) 0.0 (0.0-0.2) /100WBC Sodium 140 (135-145) mmol/L Potassium 3.5 (3.3-5.1) mmol/L Chloride 106 (96-108) mmol/L Carbon Dioxide 27 (22-29) mmol/L Anion Gap 11 L (12-20) BUN 12 (9-16) mg/dL Creatinine 0.78 (0.5-1.4) mg/dL Estim Creat Clear Calc 114.1 Estimated GFR > 60 Random Glucose 96 (60-115) mg/dL Calcium 9.9 (8.4-10.2) mg/dL Magnesium 2.0 (1.6-2.6) mg/dL Total Bilirubin 0.3 (0.0-1.0) mg/dL Direct Bilirubin 0.2 (0.0-0.5) mg/dL AST 24 (5-31) U/L ALT 17 (0-31) U/L Alkaline Phosphatase 43 (39-117) U/L Troponin I High Sens < 2.7 (<3.5-17.0) ng/L Total Protein 7.8 (6.5-8.0) g/dL Albumin 4.6 (3.5-5.0) g/dL TSH 1.15 (0.32-4.0) uIU/mL Beta HCG, Quant < 2 mIU/mL Urine Color Yellow Urine Appearance Clear Urine pH 7.5 (5.0-9.0) Ur Specific [place] <= 1.005 (1.005-1.025) Urine Protein Negative (Neg-Trace) mg/dL Urine Glucose (UA) Negative (Negative) mg/dL Urine Ketones Negative (Negative) mg/dL Urine Blood Negative (Negative) Urine Nitrite Negative (Negative) Ur Leukocyte Esterase Negative (Negative) Influenza Type A (PCR) NEGATIVE (Negative) Influenza Type B (PCR) NEGATIVE (Negative) RSV RNA Qual (PCR) NEGATIVE (Negative) SARS-CoV-2 RNA (RT-PCR) NEGATIVE (Negative) Independent Interpretation I performed an independent interpretation of an: EKG (EKG shows sinus rhythm with rate of 91, there are T-wave inversions noted in the inferior and anterior leads, which appear new since previous on 08/24/2025, there are no associated ST elevations, no ectopy. QTC 528, which is lengthened compared to previous.) Interpretation: Repeat EKG performed at 21:50 hours shows sinus rhythm with a rate of 61, no evidence of acute ischemia, no ST elevation, no ectopy. QTC 418. Compared to previous earlier today the T-wave inversions have resolved and QT has shortened. Radiology Impression Discussion of test interpretation with radiology: I have reviewed the radiologist's reading. Radiologist Impression: CT head without contrast Comparison: None provided Findings: No intra-axial mass, midline shift, hydrocephalus, or acute hemorrhage. No significant atrophy-like change or white matter disease. There is no sinus or mastoid fluid. The orbits are within normal limits. There is no acute fracture. IMPRESSION: 1. No acute intracranial findings. This document has been electronically signed by: Dahiana Flores MD on 09/04/2025 23:42:49 Independent Historian Clinical information obtained from an independent historian. History obtained from or confirmed by: Parent External Record Review External record reviewed: Outpatient record and Prior outpatient labs Discharge Plan Discharge Clinical Impression: Postural dizziness with near syncope Patient Disposition: Home, Self-Care Instructions: Dizziness (ED) Additional Instructions: Thank you for choosing [facility] for your care today. Thankfully your laboratory evaluation, EKG, cardiac enzymes, thyroid levels, viral swabs, urinalysis, exam, and CT head today are all reassuring. There is no evidence of any dangerous cause for your dizziness, and there is no indication for admission to the hospital or continued ED observation, and it is safe to discharge you home. Your workup was negative for influenza, COVID, RSV, anemia, urinary tract infection, , systemic infection, electrolyte insufficiency, kidney dysfunction, abnormal thyroid levels, cardiac arrhythmia, or intracranial abnormalities such as bleeding or mass. The exact cause of your dizziness is not entirely clear, please follow up with the neurology clinic for additional investigation into the source of your symptoms. Please stay well hydrated and get plenty of rest. Please consider sitting intermittently during classes/teaching to avoid standing for extended periods of time which may put you at increased risk for recurrent dizziness and near fainting symptoms. Please also follow up with your primary care physician for re-evaluation, additional management of your symptoms, and continued preventative care. If you do not have a primary care physician, please call the [facility] at [phone] to establish a new primary care physician. While waiting to establish your new primary care physician, you can call our Walk-in Care Clinic at [phone] for non-emergency needs. Please return to the emergency department if you develop a severe or sudden change in your symptoms, a fever over 100.4 that does not improve with Tylenol or Ibuprofen, recurrent vomiting, or any other new or worsening symptoms or concerns. Referrals: Ruby Alvarez CNP [Primary Care Provider, Family Practice] Clinical Impression: Postural dizziness with near syncope [facility] [Provider Group] Clinical Impression: Postural dizziness with near syncope Print Language: Greenlandic
--- NOTE | 2025-09-04 17:54 | ECG_ITS ---
Test Reason : LIGHTHEADED Blood Pressure : */* mmHG Vent. Rate : 91 BPM Atrial Rate : 91 BPM P-R Int : 120 ms QRS Dur : 82 ms QT Int : 430 ms P-R-T Axes : 62 55 17 degrees QTcB Int : 528 ms Normal sinus rhythm with sinus arrhythmia ST & T wave abnormality, consider inferior ischemia ST & T wave abnormality, consider anterior ischemia Abnormal ECG When compared with ECG of 24-Aug-2025 13:15, Vent. rate has increased by 32 bpm T wave inversion now evident in Inferior leads T wave inversion now evident in Anterior leads QT has lengthened Referred By: Teodora Cabrera Electronically Signed By: GRICELDA SILVESTRE
[2025-09-04 18:15] LABS: MANUAL DIFF FLAG NO
[2025-09-04 18:18] LABS: Hematocrit 39.8 % (37.0-47.0); Hemoglobin 13.9 g/dl (12.0-16.0); Imm Gran Abs Auto 0.01 X10*3/uL (0.00-0.03); Imm Gran Pct Auto 0.1 % (0.0-0.4); Lymphocytes Absolute Auto 3.0 X10*3/uL (1.2-4.9); Mean Corpuscular HGB Conc 34.9 g/dl (31.0-35.0); Mean Corpuscular Hemoglobin 28.7 pg (27.0-33.0); Mean Corpuscular Volume 82.1 fL (80.0-98.0); NRBC Abs Auto 0.000 X10*3/uL (0.0-0.012); NRBC Pct Auto 0.0 /100WBC (0.0-0.2); Platelet Count 339 X10*3/uL (160-400); Red Blood Count 4.85 X10*6/uL (4.20-5.50); White Blood Count 7.5 X10*3/uL (4.8-10.8)
[2025-09-04 18:56] LABS: Alanine Aminotransferase 17 U/L (0-31); Albumin Level 4.6 g/dL (3.5-5.0); Alkaline Phosphatase 43 U/L (39-117); Anion Gap 11 (12-20); Aspartate Amino Transferase 24 U/L (5-31); Blood Urea Nitrogen 12 mg/dL (9-16); Calcium 9.9 mg/dL (8.4-10.2); Carbon Dioxide 27 mmol/L (22-29); Chloride 106 mmol/L (96-108); Creatinine Clr Calc Pharmacy 114.1; Estimated Glomerular Filt Rate > 60; Magnesium 2.0 mg/dL (1.6-2.6); Potassium 3.5 mmol/L (3.3-5.1); Sodium 140 mmol/L (135-145); Total Protein 7.8 g/dL (6.5-8.0); Troponin-I High Sensitivity < 2.7 ng/L (<3.5-17.0)
[2025-09-04 18:59] LABS: Resp Syncy Virus RNA Qual PCR NEGATIVE (Negative); SARS COV2 PCR INHOUSE NEGATIVE (Negative)
[2025-09-04 20:00] VITALS: TEMP 37.1
[2025-09-04 20:19] VITALS: BP 122/71; PULSE 83
[2025-09-04 20:20] VITALS: BP 118/70; PULSE 84
[2025-09-04 20:21] VITALS: BP 123/80; PULSE 83
--- NOTE | 2025-09-04 21:46 | ECG_ITS ---
Test Reason : repeat (diziness) Blood Pressure : */* mmHG Vent. Rate : 61 BPM Atrial Rate : 61 BPM P-R Int : 122 ms QRS Dur : 78 ms QT Int : 416 ms P-R-T Axes : 45 54 41 degrees QTcB Int : 418 ms Normal sinus rhythm Normal ECG When compared with ECG of 04-Sep-2025 18:01, Vent. rate has decreased by 30 bpm T wave inversion no longer evident in Inferior leads Referred By: Blu Collins Electronically Signed By: GRICELDA SILVESTRE
[2025-09-04 22:07] LABS: Appearance Urine Clear; Glucose Urine UA Negative (Negative); PH 7.5 (5.0-9.0); Specific Gravity - Urine <= 1.005 (1.005-1.025)
[2025-09-04 22:43] VITALS: BP 113/74; PULSE 74; RESP 18; TEMP 36.7; O2SAT 99
[2025-09-05 00:25] VITALS: BP 118/68; PULSE 71; RESP 16; TEMP 36.7; O2SAT 99
[2025-09-05 00:27] VITALS: BP 118/68; PULSE 71; RESP 16; TEMP 36.7; O2SAT 99
--- OUTSIDE RECORDS SUMMARY | 2025-09-05 05:17 | XMS_ITS | Encounter Summary ---
Author Organization [facility] Address [address] [place] [address] Phone Care Team Providers Care Marketing Operations Associate Name Role Phone Maisha Arthur MD Primary Care Provider [phone] Reason for Visit * Reason Comments Med Refill Encounter Details Date Type Department Care Team ([facility] st Contact Info) Description 04/25/2019 Refill [facility] - [address] [address] Karla Wang MD [address] [place] [address] [place] [address] Encounter for routine child health examination without [...] findings documented in this encounter Care Teams Marketing Operations Associate Relationship Specialty Start Date End Date Maisha Arthur MD [address] [facility] [place] [place] [address] PCP - General Pediatrics 01/17/24 07/01/25 documented as of this encounter
--- OUTSIDE RECORDS SUMMARY | 2025-09-05 05:17 | XMS_ITS | Encounter Summary ---
Author Organization [facility] Address [address] [place], [place] [id number] Phone Care Team Providers Care Freelance Copywriter Name Role Phone Maisha Arthur MD Primary Care Provider [phone] Reason for Visit * Reason Comments Med Refill Encounter Details Date Type Department Care Team (Late st Contact Info) Description 03/20/2019 Refill [facility] [address] [place] [address] Karla Wang MD [address] [place] [address] Acne vulgaris Social History Tobacco Use Types [...] acne documented in this encounter Care Teams Freelance Copywriter Relationship Specialty Start Date End Date Maisha Arthur MD [address] [address] PCP - General Pediatrics 01/17/24 07/01/25 documented as of this encounter
--- OUTSIDE RECORDS SUMMARY | 2025-09-05 05:17 | XMS_ITS ---
Author Organization Unknown ENCOUNTERS Encounter Performer Location Date Diagnosis Diagnosis Status Emergency [address] [id number] [facility] *Note: Encounters from your own facility or health system may be excluded. Allergies, Adverse Reactions, Alerts Allergen Type Severity Identification Date Medications Name Date Quantity Days Supplied GPI Number
--- OUTSIDE RECORDS SUMMARY | 2025-09-05 05:17 | XMS_ITS | Encounter Summary ---
Author Organization [facility] Address [address] [place], [place] [id number] Phone Care Team Providers Care Dental Laboratory Technology Teacher Name Role Phone Maisha Arthur MD Primary Care Provider [phone] Reason for Visit * Reason Comments Med Refill Encounter Details Date Type Department Care Team (Late st Contact Info) Description 03/08/2019 Refill [facility] [address] [place] [address] Karla Wang MD [address] [place] [address] Acne vulgaris Social History Tobacco Use Types [...] acne documented in this encounter Care Teams Dental Laboratory Technology Teacher Relationship Specialty Start Date End Date Maisha Arthur MD 193 [facility] [place] [facility] [place] [address] PCP - General Pediatrics 01/17/24 07/01/25 documented as of this encounter
--- OUTSIDE RECORDS SUMMARY | 2025-09-05 05:18 | XMS_ITS | Encounter Summary ---
Author Organization [facility] Address [address] [place] [address] Phone Care Team Providers Care Hand Nailer Name Role Phone Miasha Arthur MD Primary Care Provider [phone] Encounter Details Date Type Department Care Team (Late st Contact Info) Description 02/14/2017 Documentation [facility] [place] [address] [place] [address] Family Medicine, Physician [address] [place] [address] Social History Tobacco Use Types Packs/Day Years [...] on filedocumented in this encounter Care Teams Hand Nailer Relationship Specialty Start Date End Date Maisha Arthur MD [address] [facility] [address] [place] [address] PCP - General Pediatrics 01/17/24 07/01/25 documented as of this encounter
--- OUTSIDE RECORDS SUMMARY | 2025-09-05 05:18 | XMS_ITS | Encounter Summary ---
Author Organization [facility] Address [address] [place] [address] Phone Care Team Providers Care Industrial Relations Worker Name Role Phone Karla Wang MD Primary Care Provider [phone] Reason for Referral * Physical Therapy (Routine) - Closed Specialty Diagnoses / Procedures Referred By Anna Marie t Referred To Contact Physical Therapy Diagnoses Encounter for rehabilitation Les Massey MD Phone: tel: fax: [address] [address] Phone: tel: Referral ID Status Reason Start Date Expiration Date Visits Re quested Visits Authorized [id number] Closed 06/28/2019 10/16/2019 20 20 Encounter Details Date Type Department Care Team (Latest Contact Info) Description 06/28/2019 Transcribe Orders [facility] Rehabilitation Services [address] [place] [address] Karla Wang MD [address] [place] [address] Encounter for rehabilitation (Primary Dx) Social History [...] Date/Time Associated Diagnosis Comments AMB REFERRAL TO [facility] PHYSICAL THERAPY Routine 07/25/2019 10:30 AM EDT Encounter for rehabilitation documented in this encounter Results * Ambulatory referral to [facility] Physical Therapy (07/25/2019 10:30 AM EDT) Les Massey MD AMB [facility] REFERRALS Final Result documented in this encounter Visit Diagnoses Diagnosis Encounter for rehabilitation- Primary documented in this encounter Care Teams Industrial Relations Worker Relationship Specialty Start Date End Date Karla Wang MD [address] [place] [address] [place] [address] PCP - General Adolescent Medicine 06/27/19 documented as of this encounter Additional Source Comments The information contained in this document represents components of the legal health record. It is not the complete legal health record.[facility]
--- OUTSIDE RECORDS SUMMARY | 2025-09-05 05:18 | XMS_ITS | Clinical Summary ---
Author Organization [facility] Address [address] [place] [phone] Phone Care Team Providers Care Pipe Stripper Name Role Phone Unavailable Primary Care Provider [...] 05/2021- refilled x 12 mo supply at [facility] Assessment & Plan (06/28/2025 3:00 PM EDT): [...] resurfacing treatments- pt to research with her [employer] insurance. Assessment & Plan (05/16/2022 3:18 PM [...] Type Department Care Team Description 07/01/2025 Telephone [facility] [address] [address] Maisha Arthur MD records request 06/28/2025 2:10 PM EDT Office Visit [facility] [address] [address] Maisha Arthur MD Well adult exam (Primary [...] ry of Hyperlipidemia, Family history of Sudden /MS under age 55, No family history of *Sudden /MS under 55, Family history of *CVA/Stroke, Family [...] Additional history exists Procedures * Due to [place] law, this organization might not be sharing sensitive test results. Procedure Name Priority Date/Time Associated Diagnosis Comments BRIEF BEHAVIORAL ASSESSMENT - NORMAL(PSC,PHQ9,VAND ERBILT,ETC) Routine 06/28/2025 3:01 PM EDT Well adult exam CHLAMYDIA AND GONORRHEA, AMPLIFIED Routine 06/28/2025 2:24 PM EDT Screening for chlamydial disease from Last 3 Months Results * Due to [place] [employer] law, this organization might not be sharing sensitive test results. * Chlamydia and Gonorrhoea, Amplified (06/28/2025 2:24 PM EDT) Chlamydia trachomatis RNA, TMA Not Detected Not Detected 07/01/2025 10:50 AM EDT [facility] Neisseria gonorrhoeae, JORGE Not Detected Not Detected 07/01/2025 10:50 AM EDT [facility] Specimen Type VAGINAL 07/01/2025 10:50 AM EDT [facility] Swab (Vagina) 06/28/2025 2:2 4 PM EDT 06/28/2025 6:42 PM EDT Maisha Arthur MD LAB MICROBIOLOGY - GENERAL LOW [facility] Final Result Performing Organization Address City/State/[facility] Co de Phone Number [facility] from Last 3 Months Insurance [employer] AETNA
--- OUTSIDE RECORDS SUMMARY | 2025-09-05 05:18 | XMS_ITS | Encounter Summary ---
Author Organization [facility] Address [address] [place] [id number] Phone Care Team Providers Care Police And Fire Dispatcher Name Role Phone Maisha Arthur MD Primary Care Provider [phone] Encounter Details Date Type Department Care Team (Late st Contact Info) Description 02/14/2017 Documentation [facility] Family Medicine [address] [place] [address] Family Medicine, Physician [address] [place] [address] Social History Tobacco Use Types Packs/Day Years [...] on filedocumented in this encounter Care Teams Police And Fire Dispatcher Relationship Specialty Start Date End Date Maisha Arthur MD [address] [facility] [address] [place] [address] PCP - General Pediatrics 01/17/24 07/01/25 documented as of this encounter
--- OUTSIDE RECORDS SUMMARY | 2025-09-05 05:18 | XMS_ITS | Clinical Summary ---
Author Organization [facility] Address [address] [facility] [address] [place] [address] Phone Care Team Providers Care Branding Specialist Name Role Phone Karla Wang MD Primary Care Provider [phone] Encounters Date Type Department Care Team Description 06/28/2025 6:23 PM EDT - 06/28/2025 11:59 PM EDT Hospital Encounter [facility] Specimen Processing [address] [place] [address] Maisha Arthur MD Discharge Disposition: Home or [...] EDT) CHLAMYDIA TRACHOMATIS Not Detected Not Detected [facility] NEISERIA GONORRHOEAE Not Detected Not Detected [facility] SPECIMEN TYPE VAGINAL [facility] 06/28/2025 2:24 PM EDT 06/28/2025 6:42 PM EDT us Maisha Arthur MD LAB GENERAL ORDERABLES Adilene martinez Result [facility] [address] [place] [address] from Last 3 Months Insurance [employer] [facility] POS EPO [employer] [facility] POS EPO * Guarantor: TRISHA JOAQUIN Account Type Relation to Patient Date of Phone Billing Address Personal/Family Mother NALLELY CASTRO [facility] POS EPO * Guarantor: TRISHA JOAQUIN Account Type Relation to Patient Date of Phone Billing Address Personal/[place] [address] [facility] POS EPO [facility] POS EPO * Guarantor: TRISHA JOAQUIN Account Type Relation to Patient Date of Phone Billing Address Personal/[place] [address] [facility] POS EPO [facility] Address: [facility] [id number] [place] [phone] * Guarantor: TRISHA JOAQUIN Account Type Relation to Patient Date of Phone Billing Address Personal/[place] [address] [facility] POS EPO * Guarantor: TRISHA JOAQUIN Account Type Relation to Patient Date of Phone Billing Address Personal/Family Mother NALLELY CASTRO [facility] POS EPO * Guarantor: CALINTRISHA Harden Account Type Relation to Patient Date of Phone Billing Address Personal/[place] [address] [facility] POS EPO Care Teams Branding Specialist Relationship Specialty Start Date End Date Karla Wang MD [address] [place] [address] N[place]LELY [place] [address] PCP - General Adolescent Medicine 06/27/19 Additional Source Comments The information contained in this document represents components of the legal health record. It is not the complete legal health record.[facility]
--- OUTSIDE RECORDS SUMMARY | 2025-09-05 05:18 | XMS_ITS | Encounter Summary ---
Author Organization [facility] Address [address] [place] [address] Phone Care Team Providers Care Shell Maker Lockstitch Name Role Phone Maisha Arthur MD Primary Care Provider [phone] Encounter Details Date Type Department Care Team ([facility] st Contact Info) Description 06/02/2017 Conversion Encounter [facility] - [address] [address] Social History Tobacco Use Types Packs/Day Years [...] on filedocumented in this encounter Care Teams Shell Maker Lockstitch Relationship Specialty Start Date End Date Maisha Arthur MD [address] [place] [address] PCP - General Pediatrics 01/17/24 07/01/25 documented as of this encounter
== END 2025-09-05 00:38 | disposition home or self-care (01) ==
PROVIDERS: Physician Assistant; Emergency Provider Emergency Medicine; PCP Nurse Practitioner Primary Care
DX: R42 Dizziness and giddiness (principal); R55 Syncope and collapse; R94.31 Abnormal electrocardiogram [ECG] [EKG]; Z03.818 Encounter for observation for suspected exposure to other biological agents ruled out
CPT/HCPCS: 70450; 80048; 80076; 81003; 83735; 84443; 84484; 84702; 85025; 87637; 93005; 99284; 99285

== ENCOUNTER → 2025-09-04 17:54 | Outpatient (BNV) | payer OTHER, SELFPAY | PROVIDERS: Emergency Provider Emergency Medicine; PCP Nurse Practitioner Primary Care; Visit Provider Internal Medicine | DX: R94.31 Abnormal electrocardiogram [ECG] [EKG] (principal); R42 Dizziness and giddiness | CPT/HCPCS: 93010 ==

== ENCOUNTER → 2025-09-04 21:45 | Outpatient (BNV) | payer OTHER, SELFPAY | PROVIDERS: Emergency Provider Emergency Medicine; PCP Nurse Practitioner Primary Care; Visit Provider Radiology Diagnostic Radiology | DX: R42 Dizziness and giddiness (principal); R55 Syncope and collapse | CPT/HCPCS: 70450 ==